=== PATIENT | male | born 1970 | race Two or more races ===

== ENCOUNTER 2025-02-28 05:05 | Inpatient (IN) | payer OTHER ==
[2025-02-28] MEDS: ceFAZolin SODIUM 1 GM VIAL IVPB ONE
[2025-02-28] MEDS ORDERED: ONDANSETRON 4 MG/2 ML VIAL ONE ×2 (05:35→16:03)
[2025-02-28] MEDS ORDERED: KETOROLAC TROMETHAMINE 15 MG/ML VIAL ONE (05:35)
[2025-02-28] MEDS: SODIUM CHLORIDE 0.9% 500 ML INFUS.BAG IV ONE (05:55)
[2025-02-28] MEDS: ONDANSETRON 4 MG/2 ML VIAL IVPUSH ONE (05:55)
[2025-02-28] MEDS: KETOROLAC TROMETHAMINE 15 MG/ML VIAL IVPUSH ONE (05:55)
[2025-02-28 06:34] LABS: ABSOLUTE IMMATURE GRANULOCYTES 0.05 x10^3/uL (0.0-0.031); BASOPHILS # 0.06 x10^3/uL (0.01-0.08); EOSINOPHIL % 2.1 % (0.8-7.0); EOSINOPHILS # 0.17 x10^3/uL (0.04-0.54); HEMATOCRIT 49.1 % (40.1-51.0); MCHC 32.6 g/dl (32.3-36.5); MEAN CELL VOLUME 94.2 fl (79.0-92.2); MEAN PLT VOLUME 11.1 fl (9.4-12.4); MONOCYTE % 7.3 % (5.3-12.2); PLATELET COUNT 220 x10^3/uL (163-337); RDW 13.8 % (12.2-16.1)
[2025-02-28 06:41] LABS: EPI CELLS 6 /uL (0-25.1); HYALINE CASTS 1 /uL (0-3.1); PH,URINE 5.5 (5.0-8.0); URINE APPEARANCE CLOUDY; URINE BILIRUBIN 1+ (NEGATIVE); URINE COLOR DK YELLOW; URINE GLUCOSE (UA) NEGATIVE (NEGATIVE); URINE KETONE TRACE (NEGATIVE); URINE LEUK ESTERASE TRACE (NEGATIVE); URINE NITRITE POSITIVE (NEGATIVE); URINE PROTEIN 2+ (NEGATIVE); URINE RBC 2376 /uL (0-23.9); URINE WBC 25 /uL (0-25.8)
[2025-02-28 06:47] LABS: POTASSIUM 4.2 mmol/L (3.5-5.1)
[2025-02-28 06:50] LABS: ALBUMIN 4.2 g/dl (3.4-5.0); BLOOD UREA NITROGEN 14.2 mg/dL (7-18); CALCIUM 9.5 mg/dL (8.5-10.1)
[2025-02-28 06:53] LABS: CREATININE 0.9 mg/dL (0.55-1.3)
[2025-02-28 06:55] LABS: BILIRUBIN,TOTAL 0.7 mg/dL (0.2-1)
[2025-02-28] MEDS ORDERED: CEFTRIAXONE 1 GM/50 ML BAG ONE (08:55)
[2025-02-28] MEDS: CEFTRIAXONE 1,000 MG in DEXTROSE 5%-WATER - 50 ML IVPB ONE (09:05)
[2025-02-28] MEDS ORDERED: morphine SULFATE 4 MG/ML VIAL ONE (09:19)
[2025-02-28] MEDS: morphine CARPU-JECT 4 MG/1 ML DISP.SYRIN IVPUSH ONE (09:23)
[2025-02-28] MEDS: LACTATED RINGERS SOLUTION 1000 ML INFUS.BAG IV ONE (09:30)
[2025-02-28 10:58] LABS: URINE BACTERIA 19 /uL (0-1359)
[2025-02-28] MEDS ORDERED: ONDANSETRON 4 MG/2 ML VIAL IVPUSH PRN ×3 (11:17→16:51)
[2025-02-28 12:42] LABS: HCV DIAGNOSTIC IN-HOUSE W/RFLX NON-REACTIVE (NONREACTIVE)
[2025-02-28 12:47] LABS: HIV INTERPRETATION NEGATIVE (NEGATIVE)
[2025-02-28] MEDS: SODIUM CHLORIDE 1,000 ML IV SCH ×2 (13:00→17:03)
[2025-02-28] MEDS: ACETAMINOPHEN 1000 MG/100 ML BAG IVPB PRN (13:01)
[2025-02-28 13:30] VITALS: BMI 25.8
[2025-02-28] MEDS ORDERED: LACTATED RINGERS SOLUTION 1,000 ML IV SCH (15:30)
[2025-02-28] MEDS ORDERED: PROPOFOL 20 ML ONE (16:02)
[2025-02-28] MEDS ORDERED: MIDAZOLAM HCL 2 MG/2 ML SINGLE DOSE VIAL ONE (16:03)
[2025-02-28] MEDS ORDERED: DEXAMETHASONE SOD PHOSPHATE 4 MG/1 ML VIAL ONE (16:03)
[2025-02-28] MEDS ORDERED: KETOROLAC TROMETHAMINE 30 MG/1 ML VIAL ONE (16:03)
[2025-02-28] MEDS ORDERED: SEVOFLURANE 250 ML BTL ONE (16:03)
[2025-02-28] MEDS: LACTATED RINGERS SOLUTION 1,000 ML IV SCH (21:06)
[2025-03-01 04:07] VITALS: RESP 18
[2025-03-01 07:04] VITALS: TEMP 97.9
[2025-03-01] MEDS ORDERED: TAMSULOSIN HCL 0.4 MG CAP PO SCH (08:30)
[2025-03-01 08:33] LABS: ABSOLUTE IMMATURE GRANULOCYTES 0.02 x10^3/uL (0.0-0.031); BASOPHILS # 0.04 x10^3/uL (0.01-0.08); EOSINOPHIL % 2.4 % (0.8-7.0); EOSINOPHILS # 0.17 x10^3/uL (0.04-0.54); HEMATOCRIT 43.2 % (40.1-51.0); HEMOGLOBIN 14.4 g/dL (13.7-17.5); MCHC 33.3 g/dl (32.3-36.5); MEAN CELL VOLUME 93.5 fl (79.0-92.2); MEAN PLT VOLUME 10.8 fl (9.4-12.4); MONOCYTE % 8.5 % (5.3-12.2); PLATELET COUNT 193 x10^3/uL (163-337); RDW 13.6 % (12.2-16.1)
[2025-03-01 08:49] LABS: POTASSIUM 3.8 mmol/L (3.5-5.1)
[2025-03-01] MEDS: TAMSULOSIN HCL 0.4 MG CAP PO SCH (08:52)
[2025-03-01 08:56] LABS: BLOOD UREA NITROGEN 9.8 mg/dL (7-18); CALCIUM 8.8 mg/dL (8.5-10.1)
[2025-03-01 08:59] LABS: CREATININE 0.6 mg/dL (0.55-1.3)
[2025-03-01 09:00] LABS: BILIRUBIN,TOTAL 0.5 mg/dL (0.2-1); PHOSPHOROUS 3.3 mg/dL (2.5-4.9); TOT PROT 6.3 g/dl (6.4-8.2)
[2025-03-01] MEDS: CEFTRIAXONE 1 GM in DEXTROSE 5%-WATER - 50 ML IVPB SCH (09:53)
[2025-03-01] MEDS ORDERED: CEFTRIAXONE 1 GM in DEXTROSE 5%-WATER - 50 ML IVPB SCH (10:00)
[2025-03-01 13:38] VITALS: BP 113/71; PULSE 67
== END 2025-03-01 15:29 | disposition home or self-care (01) | DRG 465 ==
LOC: JER 05:05 → JERBED 09:39 → J6S 12:21
PROVIDERS: ADMIT Student in an Organized Health Care Education/Training Program; ATTEND Internal Medicine
PROC: BT1FZZZ Fluoroscopy of Left Kidney, Ureter and Bladder (ICD-10-PCS; 2025-02-28)
PROC: 0T778DZ Dilation of Left Ureter with Intraluminal Device, Via Natural or Artificial Opening Endoscopic (ICD-10-PCS; principal; 2025-02-28 14:30)
DX: N13.0 Hydronephrosis with ureteropelvic junction obstruction (principal); E78.5 Hyperlipidemia, unspecified; Z22.7 Latent tuberculosis; N39.0 Urinary tract infection, site not specified
CPT/HCPCS: 36415; 71045-TC-FY; 71260-TC; 74177-TC; 76000-TC-FY; 80053; 81003; 83605; 83690; 83735; 84100; 84484; 85025; 86140; 86480; 86803; 87086; 87389; 93005; 93010; 94760; 99285-25; C2617; Q9967

== ENCOUNTER 2025-04-18 06:14 | Day surgery (SDC) | payer OTHER ==
[2025-04-12 17:03] VITALS: BMI 31.8
[2025-04-18] MEDS ORDERED: LIDOCAINE HCL/PF 2% SDV 5ML VIAL ONE (13:02)
[2025-04-18] MEDS ORDERED: PROPOFOL 20 ML ONE ×2 (13:02)
[2025-04-18] MEDS ORDERED: MIDAZOLAM HCL 2 MG/2 ML SINGLE DOSE VIAL ONE (13:50)
[2025-04-18] MEDS ORDERED: SUCCINYLCHOLINE CHLORIDE 200 MG/10 ML SYRINGE ONE (14:18)
[2025-04-18] MEDS ORDERED: KETOROLAC TROMETHAMINE 30 MG/1 ML VIAL ONE (14:25)
[2025-04-18] MEDS ORDERED: ONDANSETRON 4 MG/2 ML VIAL ONE (14:25)
[2025-04-18] MEDS ORDERED: DEXAMETHASONE SOD PHOSPHATE 4 MG/1 ML VIAL ONE (14:25)
[2025-04-18] MEDS ORDERED: CLINDAMYCIN PHOSPHATE 600 MG/4 ML VIAL ONE (14:26)
[2025-04-18] MEDS: CLINDAMYCIN 600 MG PREMIX BAG IVPB ONE (14:30)
[2025-04-18 16:24] VITALS: RESP 18; TEMP 97.7
[2025-04-18 17:43] VITALS: BP 128/73; PULSE 64
== END 2025-04-18 17:40 | disposition home or self-care (01) ==
LOC: JASU-SURG 06:14
PROVIDERS: ATTEND Urology
PROC: 0TC78ZZ Extirpation of Matter from Left Ureter, Via Natural or Artificial Opening Endoscopic (ICD-10-PCS; principal; 2025-04-18 12:30)
PROC: 0T778DZ Dilation of Left Ureter with Intraluminal Device, Via Natural or Artificial Opening Endoscopic (ICD-10-PCS; 2025-04-18 12:30)
DX: N20.1 Calculus of ureter (principal)
CPT/HCPCS: 76000-TC-FY; 94760; C1758